=== PATIENT | female | born 1995 | race American Indian/Alaskan Native ===

== ENCOUNTER 2016-09-07 21:45 | Emergency (ER) | payer SELFPAY ==
[2016-09-08 02:54] VITALS: BP 102/62
== END 2016-09-08 02:30 | disposition left against medical advice (07) ==
LOC: ED 21:45
DX: K08.89 Other specified disorders of teeth and supporting structures (principal); Z53.21 Procedure and treatment not carried out due to patient leaving prior to being seen by health care provider